=== PATIENT | female | born 1960 | race Caucasian/White ===

== ENCOUNTER → 2018-11-27 | Outpatient (CLI) | payer BC | LOC: WI 10:38 | PROVIDERS: ATTEND Internal Medicine | DX: Z12.31 Encounter for screening mammogram for malignant neoplasm of breast (principal) | CPT/HCPCS: 77067 ==

== ENCOUNTER 2020-07-06 17:49 | Emergency (ER) | payer BC, OTHER ==
--- NOTE | 2020-07-06 18:14 | ER Document Report ---
ED Medical Screen (RME) - General Chief Complaint: Near Syncope Stated Complaint: NEEDLE STICK/AT WORK Time Seen by Provider: 07/06/20 18:04 Primary Care Provider: PATIENCE PACHECO NP [Primary Care Provider] - Follow up as needed Mode of Arrival: Wheelchair Information source: Patient Notes: 60-year-old female presented to ED for complaint of needlestick at work. 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 When doing her vital signs her blood pressure was 91/48. She states she has been very lightheaded and dizzy for the last several days. She states she does sometimes have low blood pressure and she supposed to take medicine for she is also diabetic. She states she was very dizzy today and for the last several days. I have ordered the protocol for needlesticks but have also ordered this syncope protocol. Patient will be evaluated for both problems. 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 She states she went into the bathroom in a handicap stall and she stopped the needles in the bag and she thought they were capped she reached her hand in to get the bag out and when she felt a prick on her finger she pulled her hand out took her glove off and looked at it and it was bleeding. She states she washed her hand right away. She states she does have a history of lupus low blood pressure and diabetes. States her last tetanus immunization was about 5 years ago. I have greeted and performed a rapid initial assessment of this patient. A comprehensive ED assessment and evaluation of the patient, analysis of test results and completion of medical decision making process will be conducted by an additional ED providers. TRAVEL OUTSIDE OF THE [place] IN LAST 30 DAYS: No Physical Exam - Vital signs Vitals: Temp Pulse Resp BP Pulse Ox 98.6 F 57 L 16 91/48 L 99 07/06/20 18:07/06/20 18:07/06/20 18:07/06/20 18:07/06/20 18:01 Course - Vital Signs Vital signs: Temp Pulse Resp BP Pulse Ox 98.6 F 57 L 16 91/48 L 99 07/06/20 18:07/06/20 18:01 07/06/20 18:07/06/20 18:07/06/20 18:01 Doctor's Discharge - Discharge Referrals: PATIENCE PACHECO, [employer] [Primary Care Provider] - Follow up as needed
--- NOTE | 2020-07-06 18:52 | ER Document Report ---
ED General - General Chief Complaint: Needle Stick Exposure Stated Complaint: NEEDLE STICK/AT WORK Time Seen by Provider: 07/06/20 18:04 Primary Care Provider: PATIENCE PACHECO NP [Primary Care Provider] - Follow up as needed Mode of Arrival: Wheelchair Information source: Patient Notes: Patient is a 60-year-old female presenting today for needlestick injur y. She works at a local gas station. She was cleaning out the bags where the use tampons are deposited and a hypodermic needle stuck through the bag and pricked her in the right thumb. It bled at the scene. Patient's tetanus shot is within 5 years. She has lots of chronic medical problems. When she checked and she was feeling slightly dizzy. She is aware that she is running lower than normal blood pressure. She states that this has been going on for a little while. Her doctor has been following it. When asked if she wants this addressed today she said that she did not want to have it worked up. Says that she will see her doctor about the dizziness and the blood pressure. In any event, the needle is from an unknown source and the patient is worried about HIV. I explained that it was a low risk injury but she still wants to do the postexposure prophylaxis. Patient with an negative HIV screen. She wants to take the HIV Pep protocol. TRAVEL OUTSIDE OF THE [place] IN LAST 30 DAYS: No - Related Data Allergies/Adverse Reactions: cephalexin [From Keflex] Allergy (Verified 07/06/20 18:44) iodine Allergy (Verified 07/06/20 18:44) Past Medical History - General Information source: Patient - Social History Smoking Status: Unknown if Ever Smoked Family History: Reviewed & Not Pertinent Endocrine Medical History: Reports: Hx Diabetes Mellitus Type 2 Review of Systems - Review of Systems Notes: Constitutional: No fevers. No chills. EENT: No eye redness. No eye pain. No ear pain. No sore throat. Cardiovascular: No chest pain. No palpitations. Respiratory: No cough. No shortness of breath. No respiratory distress. Gastrointestinal: No abdominal pain. No nausea, vomiting, or diarrhea. Genitourinary: Atraumatic. No lesions. No pain. No discharge. Musculoskeletal: Atraumatic. No swelling. No deformities. Skin: No rash or lesions. Positive puncture wound right thumb Lymphatic: No swollen lymph nodes. Neurologic: No headache. No syncope. Psychiatric: No suicidal or homicidal ideation. Physical Exam - Vital signs Vitals: Temp Pulse Resp BP Pulse Ox 98.6 F 57 L 16 91/48 L 99 07/06/20 18:01 07/06/20 18:01 07/06/20 18:01 07/06/20 18:01 07/06/20 18:01 - Notes Notes: General: Well-developed, well-nourished. In no acute distress. Non-toxic appearing. Cardiac: Well-perfused. Regular rate and rhythm. No murmurs, rubs, or gallops. Pulmonary: No respiratory distress. No cyanosis. Bilateral lung fiels are clear to auscultation. Abdominal: Non-distended. Non-rigid. Bowels sounds are present in all four quadrants. No guarding or rebound. HEENT: Head is atraumatic. Conjunctivae not reddened. No tearing. PERRL. EOMI. Orbits atraumatic. No periorbital swelling or erythema. Oropharynx is without erythema, swelling, or exudates. Neck: Supple. No adenopathy. No meningismus. Dermatologic: Warm with good turgor. No rash. Atraumatic. Chest: Atraumatic. No chest wall tenderness to palpation. Musculoskeletal: Moves all extremities well. No range of motion deficits. no muscular or joint tenderness. No paraspinal muscle tenderness. no midline spinal tenderness or step-off. Genitourinary: Examination deferred Neurologic: No gross neurologic deficits. Psychiatric: Normal mood. Course - Re-evaluation Re-evalutation: 07/06/20 19:01 Awaiting baseline HIV test. We will start the patient on postexposure prophylaxis as requested. As requested I canceled all of the dizziness work-up. 07/06/20 19:02 07/06/20 21:13 Baseline HIV screen negative. Will start patient on Truvada 1 tablet daily. She will need to follow-up with her Workmen's Comp. doctor in the next 1 to 2 days. - Vital Signs Vital signs: Temp Pulse Resp BP Pulse Ox 98.6 F 57 L 16 95/59 L 99 07/06/20 18:01 07/06/20 18:01 07/06/20 18:01 07/06/20 18:44 07/06/20 18:01 Discharge - Discharge Clinical Impression: Needlestick injury accident Condition: Good Disposition: HOME, SELF-CARE Instructions: Contaminated Needle-Stick ([facility]) Additional Instructions: Take Truvada tablets 1 tablet/day. You may also need to take nausea medicine as this is a frequent side effect. You need to see your Workmen's Comp. doctor in the next 1 to 2 days so that you can arrange your respective follow-up on your lab work. Also take Keflex to prevent bacterial infection of the puncture site. Prescriptions: Clindamycin HCl 300 mg PO TID 5 Days #15 capsule Referrals: PATIENCE PACHECO NP [Primary Care Provider] - Follow up as needed
[2020-07-06] MEDS ORDERED: ONDANSETRON ODT 4 MG TAB (6 TAB/ER DISP) PO PRN (21:18)
[2020-07-06] MEDS ORDERED: EMTRICITABINE/TENOFOVIR 200-300 MG TAB (3 TAB/ER DISP) ONE (21:20)
[2020-07-06] MEDS ORDERED: EMTRICITABINE/TENOFOVIR 200-300 MG TAB (3 TAB/ER DISP) PO PRN (21:36)
[2020-07-06 21:46] VITALS: BP 93/59
[2020-07-07] MEDS ORDERED: EMTRICITABINE/TENOFOVIR 200-300 MG TAB (3 TAB/ER DISP) PO SCH (10:00)
[2020-07-08 12:37] LABS: HEPATITIS C VIRUS AB 0.1 s/co ratio (0.0-0.9)
== END 2020-07-06 21:47 | disposition home or self-care (01) ==
LOC: ER 17:49
DX: S61.031A Puncture wound without foreign body of right thumb without damage to nail, initial encounter (principal); R42 Dizziness and giddiness; W46.0XXA Contact with hypodermic needle, initial encounter; Y99.0 Civilian activity done for income or pay; E11.9 Type 2 diabetes mellitus without complications
CPT/HCPCS: 86317; 86701; 86803; 86804; 99283